=== PATIENT | male | born 1960 | race Caucasian/White ===

== ENCOUNTER → 2017-01-03 | Outpatient (CLI) | payer MEDICARE, MEDICAID ==
--- NOTE | 2017-01-03 10:50 | REP ---
ULTRASOUND OF THE ABDOMEN: Real-time sonographic of the abdomen is performed. The gallbladder has been removed. There is no intrahepatic or extrahepatic biliary dilatation, common bile duct measuring 4 mm in diameter. Liver demonstrates heterogeneous echotexture suggesting fibrofatty infiltration. Main portal vein is normal in caliber at 11 mm. No gross liver or pancreatic mass is seen. Study is limited due to bowel gas. Entire pancreas could not be visualized. Spleen is grossly unremarkable in appearance. It is not optimally visualized due to body habitus and bowel gas. Transverse diameter is 8.3 cm. Kidneys are normal in size and echotexture, right kidney measuring 11.3 x 6.5 x 4.9 cm and left kidney 11.4 x 6.7 x 6.9 cm. There is no mass, hydronephrosis, or nephrolithiasis. Proximal abdominal aorta is obscured by bowel gas. Distally AP diameter is 1.6 cm. No ascites is seen. IMPRESSION: Limited exam due to body habitus and bowel gas. Status post cholecystectomy. Diffuse fibrofatty infiltration of the liver. Signed by Duong Thompson MD 01/03/2017 12:16 P
== END ==
LOC: M RAD 08:25
PROVIDERS: ATTEND Internal Medicine Infectious Disease
DX: R93.9 Diagnostic imaging inconclusive due to excess body fat of patient (principal); K76.0 Fatty (change of) liver, not elsewhere classified

== ENCOUNTER 2017-01-14 10:37 | Emergency (ER) | payer MEDICARE, MEDICAID ==
[~2017-01-14] VITALS: Ht 182.9 cm; Wt 100.7 kg
[2017-01-14] MEDS ORDERED: LISI20TA PO (10:51)
[2017-01-14] MEDS ORDERED: GABA-283 PO (10:51)
[2017-01-14] MEDS ORDERED: ALBU83IN INH (10:51)
[2017-01-14] MEDS ORDERED: OMEP40CA2 PO (10:51)
[2017-01-14] MEDS ORDERED: LASI40TA PO (10:51)
[2017-01-14] MEDS ORDERED: PEPC1TAB4 PO (10:51)
[2017-01-14] MEDS ORDERED: HYDR10EL GT (10:51)
[2017-01-14] MEDS ORDERED: PROM25TA GT (10:52)
[2017-01-14] MEDS ORDERED: ZOFR4TAB3 PO (10:52)
[2017-01-14 13:58] VITALS: BP 185/100
== END 2017-01-14 14:07 | disposition home or self-care (01) ==
LOC: M ED 11:14
DX: T44.7X2A Poisoning by beta-adrenoreceptor antagonists, intentional self-harm, initial encounter (principal); T46.4X2A Poisoning by angiotensin-converting-enzyme inhibitors, intentional self-harm, initial encounter; T43.592A Poisoning by other antipsychotics and neuroleptics, intentional self-harm, initial encounter; F32.9 Major depressive disorder, single episode, unspecified; Y92.9 Unspecified place or not applicable; Y93.89 Activity, other specified; I10 Essential (primary) hypertension; J44.9 Chronic obstructive pulmonary disease, unspecified; K21.9 Gastro-esophageal reflux disease without esophagitis; F41.9 Anxiety disorder, unspecified; F17.200 Nicotine dependence, unspecified, uncomplicated; Z79.899 Other long term (current) drug therapy; Z88.5 Allergy status to narcotic agent